=== PATIENT | male | born 1995 | race Caucasian/White ===

== ENCOUNTER → 2018-11-13 | Outpatient (CLI) | payer OTHER ==
[~2018-11-13] MED LIST: HYDACE5 PO
[2018-11-13 13:59] LABS: BASOPHILS ABSOLUTE AUTO 0.02 K/mm3 (0.00-0.23); BASOPHILS PERCENT AUTO 1 % (0-2); EOSINOPHILS PERCENT AUTO 2 % (0-6); Hematocrit 46.9 % (37.0-53.0); Hemoglobin 16.4 g/dL (13.5-17.5); IMMATURE GRAN ABSOLUTE AUTO 0.01 K/mm3 (0.00-0.10); IMMATURE GRAN PERCENT AUTO 0 % (0-1); LYMPHOCYTES ABSOLUTE AUTO 0.95 K/mm3 (0.84-5.20); LYMPHOCYTES PERCENT AUTO 23 % (21-46); MONOCYTES ABSOLUTE AUTO 0.28 K/mm3 (0.16-1.47); MONOCYTES PERCENT AUTO 7 % (4-13); Mean Corpuscular HGB 31.3 pg (26.0-34.0); Mean Corpuscular Volume 90 fL (80-100); Mean Platelet Volume 9.9 fL (9.1-12.4); NEUTROPHILS ABSOLUTE AUTO 2.78 K/mm3 (1.96-9.15); NEUTROPHILS PERCENT AUTO 67 % (41-73); Platelet Count 264 K/mm3 (150-400); RDW Coefficient Variation 12.2 % (11.7-14.2); RDW Standard Deviation 39.8 fL (35.1-46.3); Red Blood Cell Count 5.24 M/mm3 (4.30-5.90); White Blood Cell Count 4.14 K/mm3 (4.00-11.30)
[2018-11-13 14:09] LABS: Alanine Aminotransfer (ALT/SGP 60 U/L (12-78); Alk Phos 89 U/L (40-126); Anion Gap 7 mmol/L (6-16); Aspartate Aminotrans (AST/SGOT 27 U/L (12-37); Bilirubin, Total 0.6 mg/dL (0.1-1.0); Blood Urea Nitrogen 10 mg/dL (8-24); Bun/Creatinine Ratio 10.2 (12.0-20.0); CO2, Blood 29 mmol/L (21-32); Calcium, Blood 9.1 mg/dL (8.5-10.1); Chloride, Blood 102 mmol/L (98-108); Creatinine, Blood 0.98 mg/dL (0.60-1.20); Globulin, Blood 3.9 g/dL (2.2-4.0); Glomerular Filtration Rate >60 (60-); Glucose, Blood 128 mg/dL (70-99); Potassium, Blood 3.8 mmol/L (3.5-5.5); Sodium, Blood 138 mmol/L (136-145); Total Protein, Blood 7.9 g/dL (6.4-8.2)
== END | disposition home or self-care (01) ==
LOC: LAB SHORT 13:54 → LAB EV 13:54
PROVIDERS: General Practice
DX: J02.9 Acute pharyngitis, unspecified (principal)
CPT/HCPCS: 80053; 85025; 87081; 87147

== ENCOUNTER 2019-06-21 11:04 | Emergency (ER) | payer SELFPAY ==
[~2019-06-21] VITALS: Ht 185.4 cm; Wt 72.6 kg
[2019-06-21] MEDS ORDERED: Norco 5-325 Ta1 EACH PO (13:20)
== END 2019-06-21 13:23 | disposition home or self-care (01) ==
LOC: ER 11:04
DX: S52.122A Displaced fracture of head of left radius, initial encounter for closed fracture (principal); V00.131A Fall from skateboard, initial encounter
CPT/HCPCS: 73080; 73110; 99283-25

== ENCOUNTER → 2021-02-28 | Outpatient (CLI) | payer SELFPAY ==
[~2021-02-28] MED LIST changes: +Norco 5-325 Ta1 EACH PO
== END | disposition home or self-care (01) ==
LOC: LAB SHORT 15:20
DX: J36 Peritonsillar abscess (principal)
CPT/HCPCS: 87081